=== PATIENT | male | born 1990 | race Caucasian/White ===

== ENCOUNTER 2022-01-21 11:25 | Inpatient (IN) | payer BC ==
[~2022-01-21 11:25] MED LIST: Gadobenate Dimeglumine 529 MG/1 ML (20ML VIAL) ONE
[2022-01-21 12:35] LABS: #Basophils 0.1 10x3/uL (0.0-0.2); #Eosinphils 0.1 10x3/uL (0.0-0.5); #Monocytes 0.8 10x3/uL (0.0-1.1); #Neutrophils 7.3 10x3/uL (1.5-8.4); %Basophils 0.9 % (0.0-2.0); %Eosinophils 1.3 % (0.0-6.0); %Lymphocytes 22.9 % (18.0-47.0); %Monocytes 7.2 % (0.0-10.0); %Neutrophils 67.2 % (40.0-75.0); Hemoglobin 16.1 g/dL (13.5-17.5); Mean Corpuscular HGB CONC 35.5 g/dL (32.0-36.0); Mean Corpuscular Volume 84.4 fl (81.2-95.1); Mean Platelet Volume 11.3 fl (7.4-10.4); Platelet Count 281 10x3/uL (150-450); RBC Distribution Width 12.9 % (11.5-14.5); Red Blood Cell (RBC) Count 5.37 10x6/uL (4.32-5.72); White Blood Cell (WBC) Count 10.9 10x3/uL (3.5-10.5)
[2022-01-21 12:49] LABS: ALT (SGPT) 40 U/L (8-55); AST (SGOT) 19 U/L (5-34); Albumin 4.6 g/dL (3.5-5.0); Alkaline Phosphatase 69 U/L (40-110); Anion Gap 14 mmol/L (10-20); BUN (Urea Nitrogen) 14 mg/dL (8.9-20.6); Bilirubin, Total 0.8 mg/dL (0.2-1.2); CK (CPK) 119 U/L (30-200); Calc. Creatinine Clearance 0 mL/min (70-130); Calcium 9.4 mg/dL (7.8-10.44); Carbon Dioxide 23 mmol/L (22-29); Chloride 107 mmol/L (98-107); Globulin 2.8 g/dL (2.4-3.5); Glucose 98 mg/dL (70-105); Protein, Total 7.4 g/dL (6.0-8.3); Sodium 140 mmol/L (136-145)
[2022-01-21] MEDS ORDERED: Albuterol 200 PUFF (6.7GM INHALER) INH PRN (13:57)
[2022-01-21] MEDS ORDERED: Benzonatate 100 MG CAP PO PRN (13:57)
[2022-01-21] MEDS ORDERED: Acetaminophen 650 MG Suppository PR PRN (13:57)
[2022-01-21 14:22] LABS: Bilirubin Neg (Negative); Blood, Urine Negative (Negative); Clarity Clear (Clear); Glucose, Urine (Dipstick) Normal (Negative); Ketone, Urine Negative (Negative); Leukocyte Negative (Negative); Nitrite Negative (Negative); Protein, Urine (Dipstick) 15 mg/dl (Neg-Trace); Specific Gravity, Urine 1.025 (1.002-1.036); Urobilinogen Normal mg/dL (Less than 2)
[2022-01-21 14:27] LABS: SARS-CoV-2 NAA Rapid Test Not Detected (NotDetected)
[2022-01-21 20:00] VITALS: BMI 35.4
[2022-01-21] MEDS: Famotidine 20 MG TAB PO SCH (20:46)
[2022-01-21] MEDS: Acetaminophen 325 MG TAB PO PRN (20:46)
[2022-01-22 04:46] LABS: Anion Gap 16 mmol/L (10-20); BUN (Urea Nitrogen) 14 mg/dL (8.9-20.6); Calc. Creatinine Clearance 193 mL/min (70-130); Calcium 8.7 mg/dL (7.8-10.44); Carbon Dioxide 20 mmol/L (22-29); Chloride 109 mmol/L (98-107); Glucose 99 mg/dL (70-105); Potassium 4.1 mmol/L (3.5-5.1); Sodium 141 mmol/L (136-145)
[2022-01-22 04:53] LABS: #Basophils 0.1 10x3/uL (0.0-0.2); #Eosinphils 0.2 10x3/uL (0.0-0.5); #Monocytes 0.6 10x3/uL (0.0-1.1); #Neutrophils 4.9 10x3/uL (1.5-8.4); %Basophils 0.9 % (0.0-2.0); %Eosinophils 2.3 % (0.0-6.0); %Lymphocytes 33.3 % (18.0-47.0); %Monocytes 6.6 % (0.0-10.0); %Neutrophils 56.2 % (40.0-75.0); Hemoglobin 15.4 g/dL (13.5-17.5); Mean Corpuscular HGB CONC 35.4 g/dL (32.0-36.0); Mean Corpuscular Hemoglobin 30.5 pg (27.0-33.0); Mean Corpuscular Volume 86.1 fl (81.2-95.1); Mean Platelet Volume 11.7 fl (7.4-10.4); Platelet Count 242 10x3/uL (150-450); RBC Distribution Width 13.1 % (11.5-14.5); Red Blood Cell (RBC) Count 5.05 10x6/uL (4.32-5.72); White Blood Cell (WBC) Count 8.7 10x3/uL (3.5-10.5)
[2022-01-22] MEDS ORDERED: Enoxaparin Sodium 40 MG/0.4 ML SYRINGE SC SCH (09:00)
[2022-01-22] MEDS: Famotidine 20 MG TAB PO SCH (09:29)
[2022-01-22] MEDS: Acetaminophen 325 MG TAB PO PRN (09:36)
[2022-01-22] MEDS ORDERED: Gabapentin 300 MG CAP PO SCH ×2 (10:00→21:00)
[2022-01-22] MEDS ORDERED: Cyclobenzaprine 10 MG TAB PO SCH (10:00)
[2022-01-22 18:02] VITALS: BP 134/84; TEMP 98
== END 2022-01-22 17:15 | disposition home or self-care (01) | DRG 556 ==
LOC: CSHERS 11:25 → CSHTELE 13:57 → OBSVTOIN 13:58 → INTOOBSV 18:54 → CSHTELE 18:54 → UNDOADMOB 18:54
PROVIDERS: ADMIT Hospitalist; ATTEND Family Medicine
DX: R29.898 Other symptoms and signs involving the musculoskeletal system (principal); R53.1 Weakness; I10 Essential (primary) hypertension; Z20.822 Contact with and (suspected) exposure to COVID-19; M54.9 Dorsalgia, unspecified
CPT/HCPCS: 36415; 71045; 72158; 80048; 80053; 81003; 82550; 82728; 83735; 84145; 85025; 85379; 86140; 93005; 94760; 96360; A9577; J1650; U0002